=== PATIENT | male | born 1995 | race African-American/Black ===

== ENCOUNTER 2019-11-04 08:21 | Emergency (ER) | payer OTHER, SELFPAY ==
[2019-11-04] MEDS ORDERED: cefTRIAXone\\ROCEPHIN 250 MG VIAL ONE (08:38)
[2019-11-04] MEDS ORDERED: Azithromycin 250 MG TAB ONE ×2 (08:38→08:42)
[2019-11-04] MEDS ORDERED: Lidocaine 1% (PF) 30 ML VIAL ONE (08:38)
[2019-11-04 09:39] LABS: Bilirubin Negative (Negative); Blood, Urine Negative (Negative); Clarity Turbid (Clear); Glucose, Urine (Dipstick) Normal (Negative); Leukocyte 500 Leu/uL (Negative); Nitrite Negative (Negative); Protein, Urine (Dipstick) Negative (Neg-Trace); Urobilinogen Normal mg/dL (Less than 2); WBC/HPF Greater than 50 HPF (0-3)
[2019-11-04 09:48] LABS: Bacteria/HPF 1+ HPF (None Seen); RBC/HPF 0-3 HPF (0-3); Squamous Epithelial 0-3 HPF (0-3)
[2019-11-04 21:12] LABS: Chlam.trachomatis by PCR,Urine Not Detected (NotDetected)
== END 2019-11-04 10:00 | disposition home or self-care (01) ==
LOC: ERS 08:21
DX: R30.0 Dysuria (principal)
CPT/HCPCS: 81003; 81015; 87491; 87591; 96372; 99283; J0696; J2001

== ENCOUNTER 2021-09-01 10:12 | Emergency (ER) | payer SELFPAY ==
[2021-09-01] MEDS ORDERED: Fluorescein Opthalmic Strip ONE (11:15)
[2021-09-01] MEDS ORDERED: Proparacaine 0.5% Opth 15 ML BOT ONE (11:16)
== END 2021-09-01 11:57 | disposition home or self-care (01) ==
LOC: ERS 10:12
DX: H10.9 Unspecified conjunctivitis (principal)
CPT/HCPCS: 99282